=== PATIENT | female | born 1965 | race Caucasian/White ===

== ENCOUNTER 2017-10-19 10:37 | Emergency (ER) | payer OTHER ==
[~2017-10-19] VITALS: Ht 172.7 cm; Wt 70.3 kg
[~2017-10-19 10:37] MED LIST: GUAIFENESIN-CO118 ML PO; MULTI VITAMIN1 EACH PO; PAXIL40 MG PO; YAZ 28 TABLET1 EACH PO; ZOLOFT50 MG PO
[2017-10-19] MEDS ORDERED: XANAX0.5 MG PO (11:55)
--- NOTE | 2017-10-19 14:57 | EKG ---
[facility] [address] [facility] [place] [address] Signed Normal sinus rhythm Normal ECG No previous ECGs available Confirmed by DAGMAR GARCIA MD ([id number]) on 10/19/2017 2:57:43 PM Electronically Signed By: DAGMAR GARCIA MD 10/19/17 1457 PATIENT NAME: WIL LAI WILL Electrocardiogram DATE OF : 69 PHYSICIAN: DAGMAR GARCAI MD REPORT #: [id number] REPORT IS CONFIDENTIAL AND NOT TO BE RELEASED WITHOUT AUTHORIZATION
== END 2017-10-19 12:42 | disposition home or self-care (01) ==
LOC: ED 10:37
DX: F41.9 Anxiety disorder, unspecified (principal); R00.2 Palpitations; F32.9 Major depressive disorder, single episode, unspecified; Z88.2 Allergy status to sulfonamides; Z88.0 Allergy status to penicillin; Z88.8 Allergy status to other drugs, medicaments and biological substances; Z79.899 Other long term (current) drug therapy
CPT/HCPCS: 71045; 80053; 84484; 85025; 93005; 93010; 96374; 99284; J2060